=== PATIENT | female | born 1970 | race Caucasian/White ===

== ENCOUNTER 2020-04-23 11:13 | Emergency (ER) | payer MEDICARE, OTHER ==
[~2020-04-23] VITALS: Ht 170.2 cm; Wt 73.0 kg
[2020-04-23 15:17] LABS: HEMOGLOBIN 15.4 gm/dl (12.3-15.3); RED BLOOD COUNT 5.24 M/UL (4.00-5.10); WHITE BLOOD COUNT 12.1 K/UL (4.5-11.0)
[2020-04-23 15:30] LABS: BUN/CREATININE RATIO 23 (0-10)
[2020-04-23] MEDS ORDERED: CLEOCIN HCL300 MG PO (17:51)
== END 2020-04-23 18:15 | disposition home or self-care (01) ==
LOC: ER1 11:13 → ZEROF 17:16 → ER1 18:15
PROVIDERS: Preventive Medicine Occupational Medicine
DX: J34.0 Abscess, furuncle and carbuncle of nose (principal); K13.0 Diseases of lips; F41.9 Anxiety disorder, unspecified; F17.210 Nicotine dependence, cigarettes, uncomplicated; Z79.899 Other long term (current) drug therapy; Z53.20 Procedure and treatment not carried out because of patient's decision for unspecified reasons
CPT/HCPCS: 70486; 80053; 85025; 85652; 86140; 96365; 96375; 99284; J1170; J2543; J3370; J7070